=== PATIENT | male | born 1940 | race Hispanic/Latino ===

== ENCOUNTER 2022-02-19 15:42 | Inpatient (IN) | payer MEDICARE ==
[~2022-02-19] VITALS: Ht 180.3 cm; Wt 59.4 kg
[2022-02-19 16:28] LABS: BASOPHILS # (AUTO) 0.1 (0.0-0.1); BASOPHILS % 1.3 % (0.0-1.0); EOSINOPHILS # (AUTO) 0.3 (0.0-0.4); EOSINOPHILS % 5.2 % (0.0-6.0); HEMATOCRIT 38.1 % (38.2-49.6); HEMOGLOBIN 11.7 g/dL (14.0-18.0); LYMPHOCYTES # (AUTO) 1.2 (1.0-3.2); LYMPHOCYTES % 22.7 % (18.0-39.1); MEAN CORPUSCULAR HEMOGLOBIN 29.6 pg (28-32); MEAN CORPUSCULAR HGB CONC 30.7 g/dL (31-35); MEAN CORPUSCULAR VOLUME 96.5 fL (81-99); MONOCYTES # (AUTO) 0.6 (0.2-0.8); NEUTROPHILS # (AUTO) 3.1 (2.1-6.9); NEUTROPHILS % 58.8 % (38.7-80.0); PLATELET COUNT 195 x10e3/uL (140-360); RED BLOOD COUNT 3.95 x10e6/uL (4.3-5.7); RED CELL DISTRIBUTION WIDTH 13.1 % (11.7-14.4)
[2022-02-19] MEDS ORDERED: SODIUM CHLORIDE FLUSH 10 ML SYR IV PRN (16:30)
[2022-02-19 16:41] LABS: ALBUMIN 3.8 g/dL (3.5-5.0); ALBUMIN/GLOBULIN RATIO 1.1 (0.8-2.0); ANION GAP 17.9 mmol/L (8-16); CREATININE, SERUM 1.47 mg/dL (0.72-1.25); POTASSIUM 4.9 mmol/L (3.5-5.1)
[2022-02-19] MEDS ORDERED: DEXTROSE 50% SYRINGE 50 ML IV PRN (17:30)
[2022-02-19] MEDS ORDERED: Morphine 4mg INJECTION 4 MG/ML INJ IV PRN (17:30)
[2022-02-19] MEDS ORDERED: NITROGLYCERIN 0.4 MG SUBL SL PRN (17:30)
[2022-02-19] MEDS ORDERED: HEPARIN SOD (PORCINE) 5,000 UNIT/ML VIAL IV ONE (17:30)
[2022-02-19] MEDS ORDERED: ASPIRIN 81 MG CHEW TAB PO ONE (17:30)
[2022-02-19] MEDS ORDERED: ONDANSETRON HCL INJ 2MG/ML 2ML 2 MG/ML VIAL IV PRN (17:30)
[2022-02-19 17:37] LABS: INR 1.07; PARTIAL THROMBOPLASTIN TIME 32.9 seconds (23.8-35.5); PROTHROMBIN TIME 14.9 seconds (11.9-14.5)
[2022-02-19] MEDS ORDERED: HEPARIN 25,000 UNIT 800 UNIT in DEXTROSE 5% 250ML 250 ML IV SCH (17:45)
[2022-02-19] MEDS ORDERED: HEPARIN 25,000 UNIT DRIP IV ONE (18:08)
[2022-02-19 18:25] LABS: CREATINE KINASE MB 2.5 ng/mL (0-5.0)
[2022-02-19] MEDS: INSULIN REGULAR, HUMAN 100 UNIT/1 ML SQ SCH (21:00)
[2022-02-19 22:39] VITALS: BP 145/83
[2022-02-19 23:13] VITALS: BP 145/83
[2022-02-20] VITALS (8 sets, daily range): BP systolic 93–152; BP diastolic 47–115
[2022-02-20 00:39] LABS: CREATINE KINASE MB 2.1 ng/mL (0-5.0)
[2022-02-20 06:48] LABS: BASOPHILS # (AUTO) 0.1 (0.0-0.1); BASOPHILS % 0.8 % (0.0-1.0); EOSINOPHILS # (AUTO) 0.1 (0.0-0.4); EOSINOPHILS % 2.2 % (0.0-6.0); HEMATOCRIT 36.6 % (38.2-49.6); HEMOGLOBIN 11.3 g/dL (14.0-18.0); LYMPHOCYTES # (AUTO) 0.9 (1.0-3.2); LYMPHOCYTES % 14.9 % (18.0-39.1); MEAN CORPUSCULAR HEMOGLOBIN 29.9 pg (28-32); MEAN CORPUSCULAR HGB CONC 30.9 g/dL (31-35); MEAN CORPUSCULAR VOLUME 96.8 fL (81-99); MONOCYTES # (AUTO) 0.6 (0.2-0.8); MONOCYTES % 8.9 % (4.4-11.3); NEUTROPHILS # (AUTO) 4.6 (2.1-6.9); PLATELET COUNT 172 x10e3/uL (140-360); RED BLOOD COUNT 3.78 x10e6/uL (4.3-5.7); RED CELL DISTRIBUTION WIDTH 13.1 % (11.7-14.4)
[2022-02-20 07:06] LABS: ALBUMIN 3.6 g/dL (3.5-5.0); ALBUMIN/GLOBULIN RATIO 1.2 (0.8-2.0); ANION GAP 18.4 mmol/L (8-16); CALCIUM 8.8 mg/dL (8.4-10.2); CHOL/HDL RATIO 2.6 (3.9-4.7); CREATININE, SERUM 1.36 mg/dL (0.72-1.25); POTASSIUM 4.4 mmol/L (3.5-5.1)
[2022-02-20] MEDS: INSULIN REGULAR, HUMAN 100 UNIT/1 ML SQ SCH ×4 (07:30→22:11)
[2022-02-20 08:30] LABS: CREATINE KINASE MB 2.3 ng/mL (0-5.0)
[2022-02-20] MEDS: ASPIRIN 325 MG TAB EC PO SCH (08:45)
[2022-02-20] MEDS ORDERED: MAGNESIUM SULFATE 2GM/50ML 50 ML IV ONE (10:00)
[2022-02-20] MEDS ORDERED: PNEUMOCOCCAL VACCINE POLYVALENT 23 MCG/0.5 ML VIAL IM SCH (12:00)
[2022-02-20] MEDS ORDERED: ATORVASTATIN CA10 MG PO (12:29)
[2022-02-20] MEDS ORDERED: METFORMIN HCL500 MG PO (12:29)
[2022-02-20] MEDS ORDERED: LISINOPRIL10 MG PO (12:29)
[2022-02-20] MEDS ORDERED: LORATADINE10 MG PO (12:29)
[2022-02-20] MEDS: METOPROLOL TARTRATE 25 MG TAB PO SCH (12:45)
[2022-02-21] VITALS (7 sets, daily range): BP systolic 111–142; BP diastolic 66–88
[2022-02-21] MEDS: METOPROLOL TARTRATE 25 MG TAB PO SCH ×2 (00:55→09:00)
[2022-02-21] MEDS: INSULIN REGULAR, HUMAN 100 UNIT/1 ML SQ SCH ×4 (07:30→21:19)
[2022-02-21] MEDS: ASPIRIN 325 MG TAB EC PO SCH (09:00)
[2022-02-21 15:00] LABS: ANION GAP 19.5 mmol/L (8-16); CALCIUM 9.2 mg/dL (8.4-10.2); CREATININE, SERUM 1.57 mg/dL (0.72-1.25); POTASSIUM 5.5 mmol/L (3.5-5.1)
[2022-02-21] MEDS ORDERED: SOD POLYSTYRENE SULFONATE SUSP 15 GM/60 ML BTL PO ONE (16:00)
[2022-02-21] MEDS: FUROSEMIDE INJ 10 MG/ML 4 ML VIAL IV SCH ×2 (16:28→16:40)
[2022-02-21] MEDS ORDERED: METOPROLOL SUCCINATE 25 MG TAB XL PO ONE (17:00)
[2022-02-21] MEDS: ATORVASTATIN 20 MG TAB PO SCH (21:16)
[2022-02-21] MEDS: MELATONIN 3 MG TAB PO PRN (23:24)
[2022-02-22] VITALS (7 sets, daily range): BP systolic 108–142; BP diastolic 67–89
[2022-02-22 07:17] LABS: ANION GAP 16.8 mmol/L (8-16); CALCIUM 8.5 mg/dL (8.4-10.2); CREATININE, SERUM 1.48 mg/dL (0.72-1.25); POTASSIUM 3.8 mmol/L (3.5-5.1)
[2022-02-22] MEDS: INSULIN REGULAR, HUMAN 100 UNIT/1 ML SQ SCH ×4 (07:30→20:58)
[2022-02-22] MEDS: ASPIRIN 81 MG ENTERIC COATED PO SCH (09:14)
[2022-02-22] MEDS: FUROSEMIDE INJ 10 MG/ML 4 ML VIAL IV SCH ×2 (09:14→16:34)
[2022-02-22] MEDS: METOPROLOL SUCCINATE 25 MG TAB XL PO SCH ×2 (09:15→16:35)
[2022-02-22] MEDS: ATORVASTATIN 20 MG TAB PO SCH (20:43)
[2022-02-23] VITALS (8 sets, daily range): BP systolic 108–122; BP diastolic 61–68
[2022-02-23] MEDS: MELATONIN 3 MG TAB PO PRN (00:30)
[2022-02-23 06:07] LABS: BASOPHILS # (AUTO) 0.1 (0.0-0.1); BASOPHILS % 0.7 % (0.0-1.0); EOSINOPHILS # (AUTO) 0.4 (0.0-0.4); EOSINOPHILS % 4.7 % (0.0-6.0); HEMATOCRIT 38.3 % (38.2-49.6); HEMOGLOBIN 12.5 g/dL (14.0-18.0); LYMPHOCYTES # (AUTO) 1.3 (1.0-3.2); MEAN CORPUSCULAR HGB CONC 32.6 g/dL (31-35); MEAN CORPUSCULAR VOLUME 91.8 fL (81-99); MONOCYTES % 12.4 % (4.4-11.3); NEUTROPHILS % 65.1 % (38.7-80.0); PLATELET COUNT 181 x10e3/uL (140-360); RED BLOOD COUNT 4.17 x10e6/uL (4.3-5.7); RED CELL DISTRIBUTION WIDTH 12.7 % (11.7-14.4)
[2022-02-23 06:36] LABS: ANION GAP 15.2 mmol/L (8-16); CALCIUM 8.6 mg/dL (8.4-10.2); CREATININE, SERUM 1.4 mg/dL (0.72-1.25); POTASSIUM 3.2 mmol/L (3.5-5.1)
[2022-02-23] MEDS: INSULIN REGULAR, HUMAN 100 UNIT/1 ML SQ SCH ×4 (07:30→22:59)
[2022-02-23] MEDS ORDERED: POTASSIUM CHLORIDE 20 MEQ TAB CR PO ONE (08:00)
[2022-02-23] MEDS: ASPIRIN 81 MG ENTERIC COATED PO SCH (08:44)
[2022-02-23] MEDS: LISINOPRIL 2.5 MG TAB PO SCH (08:44)
[2022-02-23] MEDS: METOPROLOL SUCCINATE 25 MG TAB XL PO SCH ×2 (08:45→17:00)
[2022-02-23] MEDS: FUROSEMIDE INJ 10 MG/ML 4 ML VIAL IV SCH ×2 (08:45→17:20)
[2022-02-23] MEDS ORDERED: ONDANSETRON HCL 4 MG ORAL DISINTEGRATING TAB PO PRN (13:00)
[2022-02-23] MEDS: ATORVASTATIN 20 MG TAB PO SCH (22:57)
[2022-02-24] VITALS (8 sets, daily range): BP systolic 102–128; BP diastolic 59–72
[2022-02-24] MEDS: INSULIN REGULAR, HUMAN 100 UNIT/1 ML SQ SCH ×4 (07:30→21:00)
[2022-02-24] MEDS: LISINOPRIL 2.5 MG TAB PO SCH (09:00)
[2022-02-24] MEDS: METOPROLOL SUCCINATE 25 MG TAB XL PO SCH ×2 (09:00→17:00)
[2022-02-24] MEDS: ASPIRIN 81 MG ENTERIC COATED PO SCH (09:00)
[2022-02-24] MEDS: FUROSEMIDE INJ 10 MG/ML 4 ML VIAL IV SCH ×2 (09:28→17:15)
[2022-02-24] MEDS: POTASSIUM CHLORIDE 20 MEQ TAB CR PO SCH (12:49)
[2022-02-24] MEDS: ATORVASTATIN 20 MG TAB PO SCH (21:55)
[2022-02-25] VITALS (17 sets, daily range): BP systolic 119–147; BP diastolic 57–93
[2022-02-25] MEDS: INSULIN REGULAR, HUMAN 100 UNIT/1 ML SQ SCH ×4 (07:30→22:08)
[2022-02-25] MEDS ORDERED: NITROGLYCERIN/D5W 200 MCG/ML 250 ML ONE (08:47)
[2022-02-25] MEDS ORDERED: HEPARIN SOD (PORCINE) 1000 UNIT/ML 30ML ONE (08:47)
[2022-02-25] MEDS ORDERED: IOPAMIDOL 370 MG/ML 100 ML INFUS..BTL INJ ONE (08:47)
[2022-02-25] MEDS ORDERED: SODIUM CHLORIDE 0.9% 1000ML 1,000 ML ONE (08:47)
[2022-02-25] MEDS ORDERED: HEPARIN SOD/SOD CHLORIDE 2,000 ML ONE (08:47)
[2022-02-25] MEDS ORDERED: LIDOCAINE HCL 2% LOCAL INJ 5 ML SDV VIAL INJ ONE (08:48)
[2022-02-25] MEDS: LISINOPRIL 2.5 MG TAB PO SCH (09:00)
[2022-02-25] MEDS: ASPIRIN 81 MG ENTERIC COATED PO SCH (09:00)
[2022-02-25] MEDS: FUROSEMIDE INJ 10 MG/ML 4 ML VIAL IV SCH ×2 (09:00→17:48)
[2022-02-25] MEDS: METOPROLOL SUCCINATE 25 MG TAB XL PO SCH ×2 (09:00→17:48)
[2022-02-25] MEDS ORDERED: MIDAZOLAM HCL 2 MG/2 ML VIAL ONE (09:43)
[2022-02-25] MEDS ORDERED: VERAPAMIL HCL 2.5 MG/ML 2 ML VIAL ONE (09:43)
[2022-02-25] MEDS ORDERED: FENTANYL CITRATE/PF 100MCG/2 ML INJ ONE (09:44)
[2022-02-25 14:01] LABS: BASOPHILS % 0.7 % (0.0-1.0); EOSINOPHILS # (AUTO) 0.1 (0.0-0.4); EOSINOPHILS % 2.5 % (0.0-6.0); HEMATOCRIT 41.3 % (38.2-49.6); HEMOGLOBIN 12.9 g/dL (14.0-18.0); LYMPHOCYTES # (AUTO) 0.9 (1.0-3.2); LYMPHOCYTES % 16.1 % (18.0-39.1); MEAN CORPUSCULAR HEMOGLOBIN 29.7 pg (28-32); MEAN CORPUSCULAR HGB CONC 31.2 g/dL (31-35); MEAN CORPUSCULAR VOLUME 95.2 fL (81-99); MONOCYTES # (AUTO) 0.7 (0.2-0.8); MONOCYTES % 11.9 % (4.4-11.3); NEUTROPHILS # (AUTO) 3.8 (2.1-6.9); NEUTROPHILS % 68.6 % (38.7-80.0); PLATELET COUNT 166 x10e3/uL (140-360); RED BLOOD COUNT 4.34 x10e6/uL (4.3-5.7); RED CELL DISTRIBUTION WIDTH 12.7 % (11.7-14.4)
[2022-02-25 14:23] LABS: ANION GAP 14.5 mmol/L (8-16); CALCIUM 8.7 mg/dL (8.4-10.2); CREATININE, SERUM 1.34 mg/dL (0.72-1.25); POTASSIUM 4.5 mmol/L (3.5-5.1)
[2022-02-25] MEDS: ATORVASTATIN 20 MG TAB PO SCH (22:06)
[2022-02-26] VITALS: BP 119/57
[2022-02-26 04:00] VITALS: BP 137/57
[2022-02-26] MEDS: INSULIN REGULAR, HUMAN 100 UNIT/1 ML SQ SCH (07:30)
[2022-02-26 07:33] VITALS: BP 140/61
[2022-02-26 08:30] VITALS: BP 140/61
[2022-02-26] MEDS ORDERED: KLOR-CON M2020 MEQ PO (09:18)
[2022-02-26] MEDS ORDERED: LIPITOR20 MG PO (09:18)
[2022-02-26] MEDS ORDERED: LISINOPRIL2.5 MG PO (09:18)
[2022-02-26] MEDS ORDERED: TOPROL XL25 MG PO (09:18)
[2022-02-26] MEDS ORDERED: FUROSEMIDE40 MG PO (09:18)
[2022-02-26] MEDS ORDERED: ASPIRIN EC81 MG PO (09:18)
[2022-02-26] MEDS ORDERED: PLAVIX75 MG PO (09:18)
[2022-02-26] MEDS: FUROSEMIDE INJ 10 MG/ML 4 ML VIAL IV SCH (09:25)
[2022-02-26] MEDS: ASPIRIN 81 MG ENTERIC COATED PO SCH (09:25)
[2022-02-26] MEDS: POTASSIUM CHLORIDE 20 MEQ TAB CR PO SCH (09:25)
[2022-02-26] MEDS: METOPROLOL SUCCINATE 25 MG TAB XL PO SCH (09:26)
[2022-02-26] MEDS: LISINOPRIL 2.5 MG TAB PO SCH (09:26)
== END 2022-02-26 10:17 | disposition home or self-care (01) | DRG 286 ==
LOC: ER 15:43 → ERHOLD 17:33 → MED/SURG3 22:27 → OBSVTOIN 02-21 11:33
PROVIDERS: ADMIT Internal Medicine; ATTEND Internal Medicine
PROC: 8E0ZXY6 Isolation (ICD-10-PCS; principal; 2022-02-21)
PROC: 4A023N7 Measurement of Cardiac Sampling and Pressure, Left Heart, Percutaneous Approach (ICD-10-PCS; 2022-02-25)
PROC: B2111ZZ Fluoroscopy of Multiple Coronary Arteries using Low Osmolar Contrast (ICD-10-PCS; 2022-02-25)
PROC: B2151ZZ Fluoroscopy of Left Heart using Low Osmolar Contrast (ICD-10-PCS; 2022-02-25)
DX: I13.0 Hypertensive heart and chronic kidney disease with heart failure and stage 1 through stage 4 chronic kidney disease, or unspecified chronic kidney disease (principal); I50.21 Acute systolic (congestive) heart failure; U07.1 COVID-19; N17.9 Acute kidney failure, unspecified; E11.22 Type 2 diabetes mellitus with diabetic chronic kidney disease; E78.5 Hyperlipidemia, unspecified; N18.30 Chronic kidney disease, stage 3 unspecified; Z82.49 Family history of ischemic heart disease and other diseases of the circulatory system; Z87.891 Personal history of nicotine dependence; H91.90 Unspecified hearing loss, unspecified ear; E11.69 Type 2 diabetes mellitus with other specified complication; I49.3 Ventricular premature depolarization; I25.119 Atherosclerotic heart disease of native coronary artery with unspecified angina pectoris; Z20.822 Contact with and (suspected) exposure to COVID-19
CPT/HCPCS: 36415; 71045; 71250; 76937; 78452; 80048; 80053; 80061; 82550; 82553; 82948; 83735; 83880; 84484; 85025; 85610; 85730; 90732; 93005; 93017; 93306; 93458; 94760; 94799; 99152; 99284; A9502; C1887; G0378; J1644; J1817; J1940; J2001; J2250; J2270; J2405; J3010; J3475; J7030; Q9967

== ENCOUNTER 2024-02-15 08:32 | Day surgery (SDC) | payer MEDICARE ==
[2024-02-01 13:40] LABS: BASOPHILS % 0.7 % (0.0-1.0); EOSINOPHILS # (AUTO) 0.3 (0.0-0.4); EOSINOPHILS % 5.9 % (0.0-6.0); HEMATOCRIT 36.4 % (38.2-49.6); HEMOGLOBIN 11.5 g/dL (14.0-18.0); LYMPHOCYTES # (AUTO) 0.8 (1.0-3.2); LYMPHOCYTES % 14.3 % (18.0-39.1); MEAN CORPUSCULAR HEMOGLOBIN 31.4 pg (28-32); MEAN CORPUSCULAR HGB CONC 31.6 g/dL (31-35); MEAN CORPUSCULAR VOLUME 99.5 fL (81-99); MONOCYTES # (AUTO) 0.5 (0.2-0.8); MONOCYTES % 9.3 % (4.4-11.3); NEUTROPHILS % 69.6 % (38.7-80.0); PLATELET COUNT 187 x10e3/uL (140-360); RED BLOOD COUNT 3.66 x10e6/uL (4.3-5.7)
[2024-02-01 13:52] LABS: INR 0.96; PROTHROMBIN TIME 13.3 seconds (11.9-14.5)
[2024-02-01 14:03] LABS: ALBUMIN 4.1 g/dL (3.5-5.0); ALBUMIN/GLOBULIN RATIO 1.1 (0.8-2.0); ANION GAP 18.3 mmol/L (8-16); BILIRUBIN,TOTAL 0.4 mg/dL (0.2-1.2); CHOL/HDL RATIO 3.5 (3.9-4.7); CREATININE, SERUM 1.91 mg/dL (0.72-1.25); POTASSIUM 4.3 mmol/L (3.5-5.1); TOTAL PROTEIN 7.7 g/dL (6.5-8.1)
[~2024-02-15] VITALS: Ht 180.3 cm; Wt 63.5 kg
[2024-02-15] VITALS (11 sets, daily range): BP systolic 119–152; BP diastolic 51–79; PULSE 43–53; RESP 11–23; TEMP 97.8; O2SAT 100
[~2024-02-15 08:32] MED LIST: ASPIRIN EC81 MG PO; ATORVASTATIN CA10 MG PO; FUROSEMIDE40 MG PO; KLOR-CON M2020 MEQ PO; LIPITOR20 MG PO; LISINOPRIL10 MG PO; LISINOPRIL2.5 MG PO; LORATADINE10 MG PO; LOSARTAN POTASS25 MG PO; METFORMIN HCL500 MG PO; METOPROLOL SUCC50 MG PO; PLAVIX75 MG PO; SPIRONOLACTONE25 MG PO; TOPROL XL25 MG PO
[2024-02-15] MEDS ORDERED: HEPARIN SOD (PORCINE) 1000 UNIT/ML 30ML ONE (09:34)
[2024-02-15] MEDS ORDERED: VERAPAMIL HCL 2.5 MG/ML 2 ML VIAL ONE (09:34)
[2024-02-15] MEDS ORDERED: IOPAMIDOL 370 MG/ML 100 ML INFUS..BTL INJ ONE (09:35)
[2024-02-15] MEDS ORDERED: SODIUM CHLORIDE 0.9% 1000ML 0 ML ONE (09:35)
[2024-02-15] MEDS ORDERED: LIDOCAINE HCL 2% LOCAL 20 ML VIAL ONE (09:35)
[2024-02-15] MEDS ORDERED: NITROGLYCERIN/D5W 200 MCG/ML 0 ML ONE (09:35)
[2024-02-15] MEDS ORDERED: HEPARIN SOD/SOD CHLORIDE 2,000 ML ONE (09:35)
[2024-02-15] MEDS ORDERED: MIDAZOLAM HCL 2 MG/2 ML VIAL ONE (09:46)
[2024-02-15] MEDS ORDERED: FENTANYL CITRATE/PF 100MCG/2 ML INJ ONE (09:47)
[2024-02-15] MEDS ORDERED: SODIUM CHLORIDE 0.9% 1000ML 1,000 ML ONE (09:53)
== END 2024-02-15 12:52 | disposition home or self-care (01) ==
LOC: CATH LAB 08:32
PROVIDERS: ATTEND Internal Medicine Cardiovascular Disease
DX: I70.202 Unspecified atherosclerosis of native arteries of extremities, left leg (principal); I73.89 Other specified peripheral vascular diseases; I25.708 Atherosclerosis of coronary artery bypass graft(s), unspecified, with other forms of angina pectoris; I11.0 Hypertensive heart disease with heart failure; I50.22 Chronic systolic (congestive) heart failure; E78.00 Pure hypercholesterolemia, unspecified; E13.8 Other specified diabetes mellitus with unspecified complications; Z01.812 Encounter for preprocedural laboratory examination; Z79.02 Long term (current) use of antithrombotics/antiplatelets; Z79.82 Long term (current) use of aspirin; Z79.899 Other long term (current) drug therapy; Z95.1 Presence of aortocoronary bypass graft; Z86.16 Personal history of COVID-19; Z82.49 Family history of ischemic heart disease and other diseases of the circulatory system; Z83.3 Family history of diabetes mellitus
CPT/HCPCS: 36247; 36415 ×2; 75625; 76937; 80053; 80061; 82948; 85025; 85610; C1769 ×2; C1894; J2003; J2250; J3010; J7030; Q9967; 75716; 99152; 99153; J1644

== ENCOUNTER → 2024-05-04 | Outpatient (REF) | payer MEDICARE | LOC: RAD 13:35 | PROVIDERS: ATTEND Internal Medicine | DX: R05.9 Cough, unspecified (principal) | CPT/HCPCS: 71046 ==